=== PATIENT | female | born 1950 | race Caucasian/White ===

== ENCOUNTER → 2020-09-29 | Day surgery (SDC) | payer OTHER ==
[~2020-09-29] MED LIST: CLONAZEPAM1 MG PO; SEROQ PO
== END | disposition home or self-care (01) ==
LOC: ADM 09-26 10:00 → CIR.AMB 05:40
PROVIDERS: ATTEND Surgery
DX: C50.812 Malignant neoplasm of overlapping sites of left female breast (principal); Z20.822 Contact with and (suspected) exposure to COVID-19